=== PATIENT | female | born 1970 | race African-American/Black ===

== ENCOUNTER → 2019-01-21 | Outpatient (CLI) | payer OTHER ==
[2019-01-21 11:28] LABS: FREE T4 0.88 ng/dL (0.76-1.46); THYROID STIM HORMONE (TSH) 1.186 uIU/mL (0.358-3.74)
[2019-01-21 23:12] LABS: FSH 81.9 mIU/mL (.)
[2019-01-22 00:08] LABS: ESTRADIOL LEVEL <5.0 pg/mL (.)
== END | disposition home or self-care (01) ==
LOC: LAB 10:10
PROVIDERS: ATTEND Obstetrics & Gynecology
DX: N95.1 Menopausal and female climacteric states (principal)
CPT/HCPCS: 36415; 82670; 83001; 84439; 84443